=== PATIENT | female | born 1995 ===

== ENCOUNTER → 2019-08-13 | Emergency (ER) | payer OTHER ==
[~2019-08-13] VITALS: Ht 167.6 cm; Wt 101.6 kg
[~2019-08-13] MED LIST: INTESTINEX680 M1 PO; OMEPRAZOLE MAGN20 MG PO; ZOFRAN8 MG PO; augmentin PO
== END | disposition home or self-care (01) ==
LOC: ER 15:31
DX: R30.0 Dysuria (principal); J02.0 Streptococcal pharyngitis; E86.0 Dehydration; R50.9 Fever, unspecified

== ENCOUNTER 2021-03-12 06:57 | Emergency (ER) | payer OTHER ==
[~2021-03-12] VITALS: Ht 170.2 cm; Wt 96.2 kg
[2021-03-12] MEDS ORDERED: IPRAT-ALBUT 0.5-3 ML IH (16:08)
[2021-03-12] MEDS ORDERED: MUCINEX DM ER1 EAC1 PO (16:08)
[2021-03-12] MEDS ORDERED: BUDESONIDE0.5 MG/2 M IH (16:08)
[2021-03-12] MEDS ORDERED: PROMETH-CODEIN 65 ML PO (16:08)
[2021-03-12] MEDS ORDERED: MEDROLPACK PO (16:08)
[2021-03-12] MEDS ORDERED: TESSALON PERLE100 M1 PO (16:08)
== END 2021-03-12 16:17 | disposition home or self-care (01) ==
LOC: ER 06:57
DX: J20.9 Acute bronchitis, unspecified (principal); B34.9 Viral infection, unspecified; K52.9 Noninfective gastroenteritis and colitis, unspecified; Z11.52 Encounter for screening for COVID-19

== ENCOUNTER 2021-10-26 20:56 | Emergency (ER) | payer OTHER ==
[~2021-10-26] VITALS: Ht 170.2 cm; Wt 96.2 kg
[~2021-10-26 20:56] MED LIST changes: +ACETAMINOPHEN650 M2; +BUDESONIDE0.5 MG/2 M IH; +IPRAT-ALBUT 0.5-3 ML IH; +MEDROLPACK PO; +MUCINEX DM ER1 EAC1 PO; +PROMETH-CODEIN 65 ML PO; +TESSALON PERLE100 M1 PO
== END 2021-10-26 22:12 | disposition home or self-care (01) ==
LOC: ER 20:56
DX: H92.02 Otalgia, left ear (principal)

== ENCOUNTER 2022-01-06 18:58 | Emergency (ER) | payer OTHER ==
[~2022-01-06] VITALS: Ht 172.7 cm; Wt 105.2 kg
== END 2022-01-07 00:03 | disposition home or self-care (01) ==
LOC: ER 18:58
DX: B34.9 Viral infection, unspecified (principal)